=== PATIENT | male | born 1950 | race African-American/Black ===

== ENCOUNTER → 2016-12-27 | Outpatient (CLI) | payer MEDICARE ==
--- NOTE | 2016-12-28 16:58 | SLEEP ---
DATE OF STUDY: 12/27/2016 ATTENDING PHYSICIAN: Dr. Chong Mackenzie. REFERRING PHYSICIAN: Dr. Walter Mendes. The patient is a 66-year-old, who weighs 335 pounds with a BMI of 44. The patient's Clinton score was 7. A split night study was performed at [facility]. During the night study, the patient spent 425 minutes in bed and slept for 366 minutes with a sleep efficiency of 86%. Sleep latency was 9 minutes with a REM latency of 234 minutes. Overall, sleep architecture showed increased stage I and stage II sleep, reduced slow wave and normal REM sleep. During the initial diagnostic portion of the study, the patient slept for 151 minutes. During this time, there were 52 obstructive apneas, 103 mixed apneas, no central apneas and 24 hypopneas. The patient's apnea hypopnea index was 71 per hour, supine index 76 per hour. REM sleep was not seen during the diagnostic portion of the study. Review of nocturnal oximetry study revealed a mean oxygen saturation of 90% with the lowest 82%. 19% of the time, oxygen saturation remained between 80% and 89%. EKG monitoring revealed normal sinus rhythm. No sustained arrhythmias were observed. Average heart rate was 68 beats per minute. PLMS were seen at index of 23 per hour, but only 1 per hour caused EEG arousals. The patient met the criteria for CPAP initiation. The patient was unable to tolerate pressure less than 9 cm of water. At a final pressure of 12 cm of water, the patient slept for 174 minutes. The patient had long supine as well as long REM period. AHI was only 2 per hour and oxygen saturation remained above 91%. The patient used medium size nasal pillows. IMPRESSION: 1. Severe sleep apnea-hypopnea syndrome with an AHI of 71 per hour. 2. Nocturnal hypoxia secondary to obstructive sleep apnea, which resolved with CPAP. 3. Moderate periodic limb movements without any significant EEG arousals. This does not need to be treated unless the patient has symptoms of restless legs during the day. RECOMMENDATIONS: 1. CPAP at 12 cm of water completely eliminated the patient's sleep apnea and should be used on a nightly basis. The patient used medium size nasal pillows. 2. Follow up in 4-6 weeks to assess compliance with CPAP and to document clinical improvement. 3. Weight loss is strongly advised. 4. Avoid [employer] depressants. 5. Cautioned regarding driving until symptoms of sleep apnea resolve with the use of CPAP. ELDER PATINO MD DR: EVAN/yisel JOB#: [id number] / [id number] CHONG Pagan MD, GEORGE MD
== END | disposition home or self-care (01) ==
LOC: SLPLAB 20:33
PROVIDERS: ATTEND Internal Medicine Pulmonary Disease
DX: G47.33 Obstructive sleep apnea (adult) (pediatric) (principal)
CPT/HCPCS: 95810